=== PATIENT | female | born 1950 ===

== ENCOUNTER 2021-07-08 10:57 | Day surgery (SDC) | payer OTHER ==
[~2021-07-08 10:57] MED LIST: CALCIUM PO; CHILDREN'S ASPI81 MG PO; CRESTOR5 MG PO; SYNTHROID88 MCG PO; VITAMIN D3 PO
== END 2021-07-08 18:00 | disposition home or self-care (01) ==
LOC: CIR.AMB 10:57
PROVIDERS: ATTEND Specialist
DX: D26.0 Other benign neoplasm of cervix uteri (principal); N85.8 Other specified noninflammatory disorders of uterus; Z20.822 Contact with and (suspected) exposure to COVID-19